=== PATIENT | male | born 1995 ===

== ENCOUNTER 2021-10-12 17:35 | Emergency (ER) | payer OTHER ==
[~2021-10-12] VITALS: Ht 172.7 cm; Wt 65.8 kg
[2021-10-12 22:45] VITALS: BP 117/73
[2021-10-12] MEDS ORDERED: BACITRACIN TOP OINT 1 UD PKG TOP ONE (23:00)
== END 2021-10-12 23:25 | disposition home or self-care (01) ==
LOC: ER 17:35
DX: S80.862A Insect bite (nonvenomous), left lower leg, initial encounter (principal); L02.416 Cutaneous abscess of left lower limb; W57.XXXA Bitten or stung by nonvenomous insect and other nonvenomous arthropods, initial encounter; Y93.89 Activity, other specified; Y92.89 Other specified places as the place of occurrence of the external cause; Y99.8 Other external cause status